=== PATIENT | male | born 1995 | race Caucasian/White ===

== ENCOUNTER 2017-05-29 03:33 | Emergency (ER) | payer OTHER, MEDICARE ==
[~2017-05-29] VITALS: Ht 172.7 cm; Wt 71.0 kg
[~2017-05-29 03:33] MED LIST: DICY1TAB26 PO; FAMO20 PO; ZOFR4TAB3 SL
[2017-05-29 03:36] VITALS: BP 121/75; PULSE 97; RESP 16; TEMP 97.6; O2SAT 96
[2017-05-29] MEDS ORDERED: SODIUM CHLOR 0.9% 1000 ML INJ 1,000 ML IV SCH (04:28)
[2017-05-29] MEDS ORDERED: ONDANSETRON HCL 4 MG/2 ML VIAL IVP ONE (04:30)
[2017-05-29] MEDS ORDERED: FAMOTIDINE 20 MG/2 ML VIAL IV PUSH ONE (04:30)
[2017-05-29] MEDS ORDERED: MORPHINE SULFATE 2 MG/ML INJ IV PUSH ONE (04:30)
[2017-05-29 04:54] LABS: AUTOMATED NEUTROPHIL # 9.7 TH/MM3 (1.8-7.7); BASOPHIL % 0.4 % (0.0-2.0); EOSINOPHIL % 0.4 % (0.0-4.0); HEMATOCRIT 45.4 % (39.0-51.0); HEMOGLOBIN 15.8 GM/DL (13.0-17.0); LYMPH % 17.8 % (9.0-44.0); LYMPHOCYTE # 2.3 TH/MM3 (1.0-4.8); MEAN CELL VOLUME 88.5 FL (80.0-100.0); MEAN CORPUSCULAR HEMOGLOBIN 30.8 PG (27.0-34.0); MEAN CORPUSCULAR HGB CONC 34.8 % (32.0-36.0); MEAN PLATELET VOLUME 8.7 FL (7.0-11.0); MONO % 4.9 % (0.0-8.0); MONOCYTE # 0.6 TH/MM3 (0-0.9); NEUT % 76.5 % (16.0-70.0); PLATELET COUNT 227 TH/MM3 (150-450); RED BLOOD COUNT 5.12 MIL/MM3 (4.50-5.90); RED CELL DISTRIBUTION WIDTH 14.5 % (11.6-17.2); WHITE BLOOD COUNT 12.6 TH/MM3 (4.0-11.0)
[2017-05-29 05:12] LABS: ALT (GPT) 22 U/L (12-78); AST (GOT) 15 U/L (15-37); BICARBONATE 23.1 MEQ/L (21.0-32.0); BLOOD UREA NITROGEN 10 MG/DL (7-18); CALCIUM 9.3 MG/DL (8.5-10.1); CHLORIDE 108 MEQ/L (98-107); GLOMERULAR FILTRATION RATE 104 ML/MIN (>89); GLUCOSE,RANDOM 92 MG/DL (74-106); LIPASE 163 U/L (73-393); SODIUM (NA) 143 MEQ/L (136-145)
[2017-05-29 05:15] LABS: ALKALINE PHOSPHATASE 62 U/L (45-117); TOTAL BILIRUBIN ADULT 0.3 MG/DL (0.2-1.0); TOTAL PROTEIN 8.4 GM/DL (6.4-8.2)
--- NOTE | 2017-05-29 05:41 | PD ---
HPI Chief Complaint: Abdominal Pain Time Seen by Provider: 04:28 Travel History International Travel<30 days: No Contact w/Intl Traveler<30days: No Traveled to known affect area: No History of Present Illness HPI 22-year-old male presents to the emergency department for complaint of abdominal pain with nausea vomiting and loose stool. Patient reportedly was seen by his paint maker Dr. Bustos in [place] 4 weeks ago and underwent upper endoscopy which identified him to reportedly have for ulcers. Patient was placed on omeprazole. Patient states she's been having symptoms for the past 4 weeks. Patient does not report any hematemesis coffee-ground emesis melena hematochezia. Patient also reportedly has had colonoscopy in the past and was identified to have inflammatory bowel disease. Patient also has history of gastroparesis and gluten intolerance. Patient's had no fever or chills. Patient states that this evening started having increasing abdominal pains decided to come to the emergency room for evaluation. [id number] antacids and Tums not providing any relief. Patient reports pain as 10 over 10 in intensity and midline. Patient is unable to identify exacerbating or alleviating factors. PFSH Past Medical History Narrative Medical Gastroparesis, gluten intolerance, peptic ulcer disease, inflammatory bowel disease possible Crohn's; alcohol use marijuana use tobacco use; nursing notes reviewed Gastrointestinal Disorders: Yes (CHRON'S DISEASE) Psychiatric: Yes (AUTISM) Immunizations Current: Yes Ulcer: Yes (stomach) Tetanus Vaccination: < 5 Years Influenza Vaccination: Yes Past Surgical History Eye Surgery: Yes (BILAT MUSCLE RECONSTRUCTION) Social History Alcohol Use: Yes Tobacco Use: Yes Substance Use: Yes (marijuana) Allergies-Medications (Allergen,Severity, Reaction): Coded Allergies: amoxicillin (Verified Allergy, Severe, Edema, 05/29/17) clavulanic acid (Verified Allergy, Severe, Edema, 05/29/17) penicillin V (Verified Allergy, Severe, Anaphylaxis, 05/29/17) Reported Meds & Prescriptions Reported Meds & Active Scripts Active Review of Systems Except as stated in HPI: all other systems reviewed are Neg Physical Exam Narrative GENERAL: Well developed well-nourished male in no acute distress no respiratory distress SKIN: Warm and dry. HEAD: Normocephalic. EYES: No scleral icterus. No injection or drainage. NECK: Supple, trachea midline. No JVD or lymphadenopathy. CARDIOVASCULAR: Regular rate and rhythm without murmurs, gallops, or rubs. RESPIRATORY: Breath sounds equal bilaterally. No accessory muscle use. GASTROINTESTINAL: Abdomen soft, non-tender, nondistended. MUSCULOSKELETAL: No cyanosis, or edema. BACK: Nontender without obvious deformity. No CVA tenderness. Data Data Last Documented VS Vital Signs Date Time Temp Pulse Resp B/P (MAP) Pulse Ox O2 Delivery O2 Flow Rate FiO2 05/29/17 06:59 63 16 93/49 (64) 97 Room Air 05/29/17 03:36 97.6 Orders Orders Complete Blood Count With Diff (05/29/17 04:28) Comprehensive Metabolic Panel (05/29/17 04:28) Lipase (05/29/17 04:28) Iv Access Insert/Monitor (05/29/17 04:28) Ondansetron Inj (Zofran Inj) (05/29/17 04:30) Sodium Chlor 0.9% 1000 Ml Inj (Ns 1000 M (05/29/17 04:28) Morphine Inj (Morphine Inj) (05/29/17 04:30) Famotidine Inj (Pepcid Inj) (05/29/17 04:30) Metoclopramide Inj (Reglan Inj) (05/29/17 05:45) Sodium Chlor 0.9% 1000 Ml Inj (Ns 1000 M (05/29/17 05:45) Abdomen, Flat & Upright (05/29/17 ) Labs Laboratory Tests Test 05/29/17 04:15 White Blood Count 12.6 TH/MM3 Red Blood Count 5.12 MIL/MM3 Hemoglobin 15.8 GM/DL Hematocrit 45.4 % Mean Corpuscular Volume 88.5 FL Mean Corpuscular Hemoglobin 30.8 PG Mean Corpuscular Hemoglobin Concent 34.8 % Red Cell Distribution Width 14.5 % Platelet Count 227 TH/MM3 Mean Platelet Volume 8.7 FL Neutrophils (%) (Auto) 76.5 % Lymphocytes (%) (Auto) 17.8 % Monocytes (%) (Auto) 4.9 % Eosinophils (%) (Auto) 0.4 % Basophils (%) (Auto) 0.4 % Neutrophils # (Auto) 9.7 TH/MM3 Lymphocytes # (Auto) 2.3 TH/MM3 Monocytes # (Auto) 0.6 TH/MM3 Eosinophils # (Auto) 0.0 TH/MM3 Basophils # (Auto) 0.0 TH/MM3 CBC Comment DIFF FINAL Differential Comment Blood Urea Nitrogen 10 MG/DL Creatinine 0.90 MG/DL Random Glucose 92 MG/DL Total Protein 8.4 GM/DL Albumin 5.0 GM/DL Calcium Level 9.3 MG/DL Alkaline Phosphatase 62 U/L Aspartate Amino Transf (AST/SGOT) 15 U/L Alanine Aminotransferase (ALT/SGPT) 22 U/L Total Bilirubin 0.3 MG/DL Sodium Level 143 MEQ/L Potassium Level 3.8 MEQ/L Chloride Level 108 MEQ/L Carbon Dioxide Level 23.1 MEQ/L Anion Gap 12 MEQ/L Estimat Glomerular Filtration Rate 104 ML/MIN Lipase 163 U/L [facility] Medical Decision Making Medical Screen Exam Complete: Yes Emergency Medical Condition: Yes Medical Record Reviewed: Yes Interpretation(s) CBC & BMP Diagram 05/29/17 04:15 Total Protein 8.4 H, Albumin 5.0, Calcium Level 9.3, Alkaline Phosphatase 62, Aspartate Amino Transf (AST/SGOT) 15, Alanine Aminotransferase (ALT/SGPT) 22, Total Bilirubin 0.3 Vital Signs Date Time Temp Pulse Resp B/P (MAP) Pulse Ox O2 Delivery O2 Flow Rate FiO2 05/29/17 03:36 97.6 97 16 121/75 (90) 96 Room Air Lipase: Values in normal range Last Impressions Abdomen X-Ray 05/29/17 0000 Signed Impressions: Service Date/Time: Monday, May 29, 2017 05:43 - CONCLUSION: 1. No evidence of obstruction. Rusty Morillo MD Differential Diagnosis Abdominal pain, peptic ulcer disease, viscus perforation, exacerbation inflammatory bowel disease, bowel obstruction, gastroenteritis, gastritis, dehydration Narrative Course IV access obtained specimens collected and sent for resulting patient administered IV fluids Zofran 4 mg, morphine 2 mg, and Pepcid 20 mg @ 5:30 AM patient states pain has improved however continues to complain of ongoing nausea and urge to have bowel movement. Patient given additional antibiotic Reglan 10 mg IV along with additional IV fluids and imaging abdominal flat and upright film ordered Abdominal flat and upright imaging study reveals no subdiaphragmatic free air or air-fluid levels or findings of bowel obstruction At 7:16 AM patient clinically improved nausea has resolved and pain has resolved patient stable for outpatient management and follow-up with his paint maker Diagnosis Primary Impression: Gastroenteritis Additional Impression: H/O peptic ulcer Referrals: [facility] [employer] [facility] call for appointment Patient Instructions: General Instructions Additional Instructions: Follow clear liquid diet for next 12-24 hours advance as tolerated to bland diet and regular diet Take medication as prescribed Follow up with your paint maker Take acetaminophen/Tylenol as needed for fever 100.4F or greater or for minor pain do not take ibuprofen/Advil/Motrin/Naprosyn/Aleve/naproxen/NSAIDs Increase fluid hydration Return to the emergency for free concerns or change in condition Med/Other Pt SpecificInfo: Prescription(s) given Scripts Dicyclomine (Bentyl) 10 Mg Cap 10 MG PO Q6HR for Bowel Management, #12 CAP 0 Refills Prov: Charlene Mckeon MD 05/29/17 Ondansetron Odt (Zofran Odt) 4 Mg Tab 4 MG SL Q6HR Y for Nausea/Vomiting, #15 TAB 0 Refills Prov: Charlene Mckeon MD 05/29/17 Sucralfate Liq (Carafate Liq) 1 Gm/10 Ml Susp 1 GM PO QID for Duodenal ulcer for 10 Days, #1200 ML 0 Refills on empty stomach Prov: Charlene Mckeon MD 05/29/17 Disposition: 01 DISCHARGE HOME Condition: Stable Charlene Mckeon MD May 29, 2017 05:41
[2017-05-29] MEDS ORDERED: METOCLOPRAMIDE HCL 10 MG/2 ML VIAL IV PUSH ONE (05:45)
[2017-05-29] MEDS ORDERED: SODIUM CHLOR 0.9% 1000 ML INJ 1,000 ML IV ONE (05:45)
--- NOTE | 2017-05-29 06:29 | RADRPT ---
EXAM DATE/TIME: 05/29/2017 05:43 [facility] COMPARISON: No previous studies available for comparison. INDICATIONS : Abdominal pain. MEDICAL HISTORY : Crohn's disease. Gastroparesis. SURGICAL HISTORY : None. ENCOUNTER: Initial ACUITY: 1 day PAIN SCORE: 10/10 LOCATION: Bilateral abdomen FINDINGS: Supine and upright views of the abdomen were performed. The abdominal bowel gas pattern is normal. No air fluid levels are seen. No abnormal masses, calcifications, or organomegaly is seen. The visu alized lower lungs are clear. No evidence of free intraperitoneal gas. The osseous structures are u nremarkable. CONCLUSION: 1. No evidence of obstruction. Rusty Morillo MD on May 29, 2017 at 6:27 Board Certified Radiologist. This report was verified electronically.
[2017-05-29 06:59] VITALS: BP 93/49; PULSE 63; RESP 16; O2SAT 97
[2017-05-29] MEDS ORDERED: CARA1SUS3 PO (07:16)
[2017-05-29] MEDS ORDERED: ZOFR4TAB3 SL (07:16)
[2017-05-29] MEDS ORDERED: DICY10 PO (07:16)
== END 2017-05-29 07:46 | disposition home or self-care (01) ==
LOC: NEPC 03:33
DX: K52.9 Noninfective gastroenteritis and colitis, unspecified (principal); F84.0 Autistic disorder; Z72.0 Tobacco use; Z87.19 Personal history of other diseases of the digestive system; Z88.0 Allergy status to penicillin; Z88.8 Allergy status to other drugs, medicaments and biological substances
CPT/HCPCS: 74019; 80053; 83690; 85025; 96361; 96374; 96375; 99284; J2270; J2405; J2765; J7030